=== PATIENT | female | born 1970 | race American Indian/Alaskan Native ===

== ENCOUNTER 2020-11-06 15:03 | Outpatient (CLI) | payer BC ==
--- NOTE | 2020-11-07 08:05 | Mammography Report ---
DIGITAL SCREENING MAMMOGRAM WITH CAD, 11/07/2020 CLINICAL INFORMATION / INDICATION: Routine screening mammography. TECHNIQUE: Digital bilateral 2D mammography was obtained in the craniocaudal and mediolateral obliqu e projections. This examination was interpreted with the benefit of Computer-Aided Detection analysis . COMPARISON: This is the patient's baseline mammogram FINDINGS: Breast Density: No dominant mass, suspicious calcifications, or architectural distortion in the left breast. There is a small focal asymmetry in the medial right breast seen only on the cc view. It is unclear i f this is conglomerate normal breast tissue versus true abnormality and further evaluation with spot compression views are recommended. IMPRESSION: Small focal asymmetry in the medial right breast. Recommend spot compression views in CC and MLO projection. Follow up recommendation: Special View: Spot -if density persists, right breast ultrasound will also be required. BI-RADS Category 0: Incomplete. Needs additional imaging evaluation and/or prior mammograms for henrry rison. A "normal" or negative report should not discourage follow up or biopsy of a clinically significant f inding. A written summary of these findings will be mailed to the patient. The patient will be entered into a mammography reporting system which will generate a reminder letter for the patient's next appointmen t at the appropriate interval. The [employer] recommends yearly mammograms starting at age 40 and continuing as l lazaro as a woman is in good health. Breast MRI is recommended for women with an approximate 20-25% or greater lifetime risk of breast cancer, including women with a strong family history of breast or ova main cancer or who have been treated for Hodgkin's disease. Signer Name: Jennie Charles MD Signed: 11/07/2020 8:01 AM Workstation Name: [id number] ([id number])
== END 2020-11-06 15:04 | disposition home or self-care (01) ==
LOC: SPVWC 15:03
PROVIDERS: ATTEND Obstetrics & Gynecology
DX: Z12.31 Encounter for screening mammogram for malignant neoplasm of breast (principal)
CPT/HCPCS: 77067